=== PATIENT | female | born 2000 | race Caucasian/White ===

== ENCOUNTER 2020-08-31 00:56 | Emergency (ER) | payer OTHER ==
[~2020-08-31 00:56] MED LIST: FIORICET1 EACH PO; FLEXERIL10 MG PO; IBUPROFEN800 MG PO; TAMIFLU6 MG/1 ML PO; ZOFRAN4 MG PO
[2020-08-31 02:01] LABS: BILIRUBIN NEGATIVE (NEGATIVE); BLOOD NEGATIVE Ery/uL (NEGATIVE); CLARITY CLEAR (CLEAR); COLOR YELLOW (YELLOW); GLUCOSE (U) NORMAL (NORMAL); LEUKOCYTES NEGATIVE Leu/uL (NEGATIVE); NITRITE NEGATIVE (NEGATIVE); PROTEIN NEGATIVE (NEGATIVE); SPECIFIC GRAVITY 1.025 (1.001-1.030)
[2020-08-31 04:34] LABS: BASOPHIL 0.2 % (0-2); EOSINOPHIL 0.7 % (0-5); HCT 33.5 % (37.0-47.0); HGB 11.4 g/dl (12.5-16.0); LYMPHOCYTE 18.1 % (15-48); MCH 32.2 pg (25.0-31.0); MCV 94.6 fL (78.0-100.0); NEUTROPHIL 73.6 % (41-80); NRBC 0; PLT 253 K/uL (150-400); RBC 3.54 M/uL (4.20-5.40); RDW 12.7 % (11.5-14.0); WBC 15.4 K/uL (4.0-10.5)
[2020-08-31 04:53] LABS: ALBUMIN 3.6 g/dL (3.4-5.0); BILIRUBIN - TOTAL 0.5 mg/dL (0.2-1.0); CREATININE 0.69 mg/dL (0.51-0.95); POTASSIUM 3.6 mmol/L (3.5-5.1); TOTAL PROTEIN 6.6 g/dL (6.4-8.2)
== END 2020-08-31 05:55 | disposition home or self-care (01) ==
LOC: FER 00:56
PROVIDERS: Emergency Medicine
DX: O21.9 Vomiting of pregnancy, unspecified (principal); O99.891 Other specified diseases and conditions complicating pregnancy; M54.40 Lumbago with sciatica, unspecified side; O99.511 Diseases of the respiratory system complicating pregnancy, first trimester; J45.909 Unspecified asthma, uncomplicated; Z79.899 Other long term (current) drug therapy; Z3A.00 Weeks of gestation of pregnancy not specified
CPT/HCPCS: 36415; 80053; 81003; 84702; 85025; 99284

== ENCOUNTER 2020-10-04 19:07 | Emergency (ER) | payer OTHER | END 2020-10-04 20:26 | disposition home or self-care (01) | LOC: FER 19:07 | DX: O20.0 Threatened abortion (principal); Z3A.00 Weeks of gestation of pregnancy not specified | CPT/HCPCS: 36415; 84702; 86900; 86901; 99284 ==

== ENCOUNTER 2021-04-14 11:20 | Inpatient (IN) | payer OTHER ==
[~2021-04-14] VITALS: Ht 157.5 cm; Wt 98.4 kg
[2021-04-14 12:06] LABS: BILIRUBIN NEGATIVE (NEGATIVE); BLOOD NEGATIVE Ery/uL (NEGATIVE); CLARITY CLEAR (CLEAR); COLOR YELLOW (YELLOW); GLUCOSE (U) NORMAL (NORMAL); LEUKOCYTES 1+ Leu/uL (NEGATIVE); NITRITE NEGATIVE (NEGATIVE); PROTEIN NEGATIVE (NEGATIVE); SPECIFIC GRAVITY 1.025 (1.001-1.030); UROBILINOGEN 0.2 mg/dL (0.2-1.0)
[2021-04-14 12:17] LABS: BACTERIA TRACE; SQUAMOUS EPITHELIAL CELLS 20-50; URINARY RBC RARE
[2021-04-14 12:44] LABS: HCT 31.1 % (37.0-47.0); HGB 10.4 g/dl (12.5-16.0); MCH 31.6 pg (25.0-31.0); MCHC 33.4 g/dL (32.0-36.0); MCV 94.5 fL (78.0-100.0); MPV 11.1 fL (6.0-9.5); RBC 3.29 M/uL (4.20-5.40); RDW 14.4 % (11.5-14.0); WBC 15.2 K/uL (4.0-10.5)
[2021-04-14 13:12] LABS: PROTEIN:CREATININE 0.17 RATIO; URINE CREATININE 143.52 mg/dL (29.00-226.00)
[2021-04-14 13:53] LABS: ALBUMIN 2.5 g/dL (3.4-5.0); BILIRUBIN - TOTAL 0.5 mg/dL (0.2-1.0); BUN/CREAT RATIO (CALC) 11.1 RATIO; CREATININE 0.72 mg/dL (0.51-0.95); GLOBULIN (CALCULATION) 3.7 g/dL; TOTAL PROTEIN 6.2 g/dL (6.4-8.2); URIC ACID 3.4 mg/dL (2.6-6.2)
[2021-04-15 07:16] LABS: HCT 28.2 % (37.0-47.0); HGB 9.1 g/dl (12.5-16.0); MCH 31.4 pg (25.0-31.0); MCHC 32.3 g/dL (32.0-36.0); MCV 97.2 fL (78.0-100.0); MPV 11.4 fL (6.0-9.5); RBC 2.9 M/uL (4.20-5.40); RDW 14.2 % (11.5-14.0); WBC 19.3 K/uL (4.0-10.5)
[2021-04-16] MEDS ORDERED: FEOSOL325 MG PO (09:34)
[2021-04-16] MEDS ORDERED: PRENATAL FORMU1 EACH PO (09:34)
[2021-04-16] MEDS ORDERED: COLACE100 MG PO (09:34)
== END 2021-04-16 11:45 | disposition home or self-care (01) | DRG 806 ==
LOC: FOB 11:20
PROVIDERS: ADMIT Obstetrics & Gynecology
PROC: 10E0XZZ Delivery of Products of Conception, External Approach (ICD-10-PCS; principal; 2021-04-14)
PROC: 0KQM0ZZ Repair Perineum Muscle, Open Approach (ICD-10-PCS; 2021-04-14)
PROC: 10907ZC Drainage of Amniotic Fluid, Therapeutic from Products of Conception, Via Natural or Artificial Opening (ICD-10-PCS; 2021-04-14)
PROC: 3E033VJ Introduction of Other Hormone into Peripheral Vein, Percutaneous Approach (ICD-10-PCS; 2021-04-14)
PROC: 0UQMXZZ Repair Vulva, External Approach (ICD-10-PCS; 2021-04-14)
DX: O99.214 Obesity complicating childbirth (principal); D62 Acute posthemorrhagic anemia; Z37.0 Single live birth; O13.4 Gestational [pregnancy-induced] hypertension without significant proteinuria, complicating childbirth; Z3A.39 39 weeks gestation of pregnancy; Z20.822 Contact with and (suspected) exposure to COVID-19; O99.02 Anemia complicating childbirth; O71.4 Obstetric high vaginal laceration alone; O71.82 Other specified trauma to perineum and vulva; O99.344 Other mental disorders complicating childbirth; F41.9 Anxiety disorder, unspecified; Z90.89 Acquired absence of other organs
CPT/HCPCS: 36415; 80053; 81001; 82570; 83615; 84156; 84550; 86850; 86900; 86901; 90686; J0595; J2916; J7120; U0002

== ENCOUNTER 2021-06-14 03:11 | Emergency (ER) | payer OTHER ==
[~2021-06-14 03:11] MED LIST changes: +COLACE100 MG PO; +FEOSOL325 MG PO; +PRENATAL FORMU1 EACH PO
[2021-06-14 04:58] LABS: INFLUENZA A NAA NEGATIVE (NEGATIVE)
[2021-06-14 05:05] LABS: CORONAVIRUS 2019 SARS-COV-2 POSITIVE (NEGATIVE)
[2021-06-14] MEDS ORDERED: ONDANSETRON ODT4 MG PO (05:11)
== END 2021-06-14 06:06 | disposition home or self-care (01) ==
LOC: FER 03:11
PROVIDERS: Emergency Medicine
DX: U07.1 COVID-19 (principal)
CPT/HCPCS: 99283; J1885; U0002